=== PATIENT | male | born 1950 | race Caucasian/White ===

== ENCOUNTER 2017-07-22 00:47 | Emergency (ER) | payer OTHER ==
[2017-07-22] MEDS ORDERED: ONDANSETRON 4 MG/2 ML VIAL IVPB ONE (00:50)
[2017-07-22] MEDS ORDERED: SODIUM CHLORIDE 1,000 ML IV ONE (00:50)
--- NOTE | 2017-07-22 00:50 | PDOC ---
History of Present Illness - General Chief Complaint: Nausea Stated Complaint: NAUSEA Time Seen by Provider: 07/22/17 00:50 History Source: Patient Exam Limitations: No Limitations - History of Present Illness Initial Comments: 07/22/17 01:10 This is a 67-year-old male who comes in complaining of epigastric discomfort and nausea and vomiting. Patient said him all vomited multiple times prior to arrival. Patient has not had any further vomiting here in the emergency room. Patient said symptoms began after eating raw shellfish this evening. Specifically brought clams. Patient denies any chest pain shortness of breath, diaphoresis. Patient says he is otherwise healthy with the exception of some high cholesterol. PAST MEDICAL HISTORY: no significant history PAST SURGICAL HISTORY: no significant history FAMILY HISTORY: no pertinant history SOCIAL HISTORY: Pt lives with family and is employed. MEDICATIONS: reviewed ALLERGIES: As per nursing notes Review of Systems General: No fevers or chills, no weakness, no weight loss HEENT: No change in vision. No sore throat,. No ear pain CardioVascular: No chest pain or shortness of breath Respiratory:No cough, or wheezing. Gastrointestinal: +nausea, + vomitting, no diarrhea or constipation, No rectal bleeding Genitourinary: No dysuria, hematuria, or frequency Musculoskeletal: No joint or muscle pain or swelling Neurologic: No headache, vertigo, dizziness or loss of consciousness Psychiatric: nor depression Skin: No rashes or easy bruising Endocrine: no increased thirst or abnormal weight change Allergic: no skin or latex allergy All other systems reviewed and normal Exam: General: Well-nourished well-developed individual, no acute distress HEENT: Throat: Normal, tonsils normal, no erythema or exudate Neck: Supple, no meningeal signs, no lymphadenopathy Eyes::Pupils equal reactive and round, extraocular motion intact Chest: Nontender to palpation Cardiac: S1-S2 normal, regular rate and rhythm, no murmurs rubs or gallops Respiratory: Lungs clear to auscultation bilateral Abdomen: Soft, nondistended, normal bowel sounds, + tender to palpation epigastric. No guarding or rebound Extremities: Warm, dry, no cyanosis, clubbing, or edema Skin: No rashes Neuro: Alert and oriented x3, nonfocal exam, grossly intact, normal gait Psych: Normal mood and affect EKG shows sinus rhythm, normal intervals, no acute ST-T wave changes normal EKG Patient's CAT scan was negative for any acute pathology. Patient felt much better slept comfortably in the emergency room for a couple of hours. Repeat CBC showed a white count of 14,000. Patient accompanied home by his significant other. Past History - Past Medical History Allergies/Adverse Reactions: Allergies Allergy/AdvReac Type Severity Reaction Status Date / Time No Known Allergies Allergy Verified 07/22/17 01:41 Home Medications: Ambulatory Orders NK [No Known Home Medication] 07/22/17 ED Treatment Course - LABORATORY CBC & Chemistry Diagram: 07/22/17 03:15 07/22/17 01:10 *DC/Admit/Observation/Transfer Diagnosis at time of Disposition: Abdominal pain Qualifiers: Abdominal location: epigastric Qualified Code(s): R10.13 - Epigastric pain - Discharge Dispostion Disposition: HOME - Patient Instructions Additional Instructions: Clear liquids only for the next 6 hours.. After that if you have had no further vomiting you may have bananas, rice, applesauce, or toast. If no further vomiting for another 8 hours you may have regular food. If you vomit again then nothing to eat or drink for 2 hours. then start back with the clear liquids. Return to the emergency department immediately with ANY new, persistent or worsening symptoms. You MUST call and follow up with your doctor tomorrow if not better. Please make sure your doctor reviews the results of your emergency evaluation. Continue any medications as previously prescribed by your physician. Thank you for coming to the Emergency Department today for your care. It was a pleasure to see you today. Please note that your evaluation is INCOMPLETE until you follow-up with your doctor.
[2017-07-22] MEDS ORDERED: morphine CARPU-JECT 4 MG/1 ML DISP.SYRIN IVPUSH ONE (00:51)
[2017-07-22] MEDS ORDERED: FAMOTIDINE 20 MG/50 ML IVPB 50 ML IVPB ONE (00:51)
[2017-07-22] MEDS ORDERED: HYOSCYAMINE SULFATE 0.125 MG *ODT PO ONE (01:40)
[2017-07-22] MEDS ORDERED: METOCLOPRAMIDE HCL INJECTION 10 MG/2 ML VIAL IVPUSH ONE (01:46)
[2017-07-22] MEDS ORDERED: ALPRAZolam 0.25 MG TABLET PO STA (01:49)
[2017-07-22 02:05] LABS: BASOPHIL 0.6 % (0-2.0); EOSINOPHIL 1.4 % (0-4.5); MCH 31.2 pg (25.7-33.7); MCHC 34.3 g/dl (32.0-35.9); MEAN PLT VOLUME 9.8 fl (7.5-11.1); NEUTROPHILS 80.6 % (42.8-82.8); PLATELET COUNT 222 K/MM3 (134-434); WHITE BLOOD COUNT 18.2 K/mm3 (4.0-10.0)
[2017-07-22 02:19] VITALS: BMI 20.3
[2017-07-22 02:26] LABS: ALK PHOS 109 U/L (45-117); ANION GAP 15 (8-16); BILIRUBIN,TOTAL 0.5 mg/dL (0.2-1.0); CO2 21 mmol/L (21-32); CREATININE 0.9 mg/dL (0.7-1.3); GLUCOSE,RANDOM 112 mg/dL (74-106); SGOT/AST 17 U/L (15-37); SGPT/ALT 16 U/L (12-78); TOT PROT 7.3 g/dl (6.4-8.2)
[2017-07-22 02:33] LABS: CPK 102 IU/L (39-308); TROPONIN I < 0.02 ng/ml (0.00-0.05)
[2017-07-22 03:54] LABS: BASOPHIL 0.6 % (0-2.0); EOSINOPHIL 0.3 % (0-4.5); MCH 31.4 pg (25.7-33.7); MCHC 34.3 g/dl (32.0-35.9); MEAN CELL VOLUME 91.7 fl (80-96); MEAN PLT VOLUME 9.1 fl (7.5-11.1); NEUTROPHILS 86.1 % (42.8-82.8); PLATELET COUNT 187 K/MM3 (134-434); RDW 13.2 % (11.9-15.9)
[2017-07-22 04:16] VITALS: BP 136/70; PULSE 72; TEMP 97.8
--- NOTE | 2017-07-24 15:27 | EKG ---
Test Reason : Blood Pressure : / mmHG Vent. Rate : 065 BPM Atrial Rate : 065 BPM P-R Int : 154 ms QRS Dur : 088 ms QT Int : 408 ms P-R-T Axes : 074 055 068 degrees QTc Int : 424 ms NORMAL SINUS RHYTHM WITH SINUS ARRHYTHMIA NORMAL ECG NO PREVIOUS ECGS AVAILABLE Confirmed by YVES CHRISTOPHER MD ([id number]) on 07/24/2017 3:27:29 PM Referred By: MD ANDERSON Confirmed By:YVES CHRISTOPHER MD
== END 2017-07-22 04:16 | disposition home or self-care (01) ==
LOC: FER 00:47
PROC: 3E033GC Introduction of Other Therapeutic Substance into Peripheral Vein, Percutaneous Approach (ICD-10-PCS; principal; 2017-07-22)
PROC: 3E033NZ Introduction of Analgesics, Hypnotics, Sedatives into Peripheral Vein, Percutaneous Approach (ICD-10-PCS; 2017-07-22)
PROC: 3E0337Z Introduction of Electrolytic and Water Balance Substance into Peripheral Vein, Percutaneous Approach (ICD-10-PCS; 2017-07-22)
DX: R10.13 Epigastric pain (principal)
CPT/HCPCS: 36415; 74177-TC; 80053; 82550; 83690; 84484; 85025; 93005; 99282-25